=== PATIENT | male | born 1970 | race African-American/Black ===

== ENCOUNTER 2019-08-21 13:03 | Emergency (ER) | payer MEDICAID ==
[~2019-08-21] VITALS: Ht 180.3 cm; Wt 89.0 kg
[2019-08-21 13:09] VITALS: BP 120/77
[2019-08-21] MEDS ORDERED: KETOROLAC 30MG/ML VIAL IM ONE (13:30)
== END 2019-08-21 15:10 | disposition home or self-care (01) ==
LOC: ER 13:03
DX: M54.89 Other dorsalgia (principal)
CPT/HCPCS: 71045; 96372; 99283; J1885